=== PATIENT | male | born 1940 | race Caucasian/White ===

== ENCOUNTER 2022-05-13 10:51 | Outpatient (CLI) | payer MEDICARE, OTHER, SELFPAY ==
--- NOTE | 2022-05-13 11:00 | CRLHL7_ITS ---
For Patients: As a result of the Cures Act, medical imaging exams and procedure reports are released immediately into your electronic medical record. You may view this report before your referring provider. If you have questions, please contact your health care provider. INDICATION: 1 year f/u right thyroid nodule COMPARISON: 05/05/2021 TECHNIQUE: Reid scale and color Doppler images were acquired of the thyroid gland. FINDINGS: The thyroid gland demonstrates heterogeneous echogenicity and has a smooth outer contour. The right lobe measures 4.6 x 2.1 x 2.0 cm and the left lobe measures 4.0 x 1.0 x 1.4 cm in size. Isthmus measures 3 millimeters. Solid heterogeneously hypoechoic nodule midportion right thyroid lobe measuring 2.2 x 1.6 x 2.0 cm, previously measuring 2.1 x 1.7 x 2.0 cm. Hypoechoic nodule lower pole left thyroid lobe measuring 6 x 4 x 4 millimeters, previously measuring 5 x 3 x 4 millimeters. The color Doppler images demonstrate normal vascularity. There is no evidence of cervical lymphadenopathy or parathyroid mass. IMPRESSION: Stable nodule midportion right thyroid lobe measuring 2.2 cm. Dictated by Fortino Cespedes MD @ 05/13/2022 12:51:06 PM (Electronically Signed)
== END 2022-05-13 10:52 | disposition home or self-care (01) ==
PROVIDERS: PCP Family Medicine; Visit Provider Surgery
DX: E04.1 Nontoxic single thyroid nodule (principal)
CPT/HCPCS: 76536

== ENCOUNTER 2024-06-11 11:15 | Outpatient (RCR) | payer MEDICARE, OTHER, SELFPAY | END 2024-09-26 14:01 | disposition home or self-care (01) | PROVIDERS: PCP Family Medicine; Visit Provider Family Medicine | DX: M54.50 Low back pain, unspecified (principal); Z51.89 Encounter for other specified aftercare | CPT/HCPCS: 97110; 97161 ==

== ENCOUNTER 2024-09-12 14:30 | Outpatient (RCR) | payer MEDICARE, OTHER, SELFPAY | END 2024-09-13 14:09 | disposition home or self-care (01) | PROVIDERS: PCP Family Medicine; Visit Provider Psychiatry & Neurology Neurology | DX: M54.2 Cervicalgia (principal); R51.9 Headache, unspecified; Z51.89 Encounter for other specified aftercare | CPT/HCPCS: 97110; 97140; 97161 ==